=== PATIENT | female | born 1925 | race African-American/Black ===

== ENCOUNTER 2016-09-12 11:26 | Outpatient (CLI) | payer MEDICARE ==
--- NOTE | 2016-09-12 14:22 | RAD ---
2 VIEWS OF CHEST: Date: 09/12/16 COMPARISON: None. HISTORY: Cough. FINDINGS: No pneumothorax, pleural fluid, focal consolidation, or alveolar edema. Mild increased linear inters titial density is noted bilaterally. Lungs are mildly hyperinflated suggesting air trapping. IMPRESSION: Chronic findings as above. No lobar consolidation or alveolar edema. POS: [facility]
== END 2016-09-12 11:27 | disposition home or self-care (01) ==
LOC: MADRAD 11:26
PROVIDERS: ATTEND Family Medicine
DX: R05 Cough (principal)
CPT/HCPCS: 71020